=== PATIENT | male | born 1975 | race Native Hawaiian/Other Pacific Islander ===

== ENCOUNTER 2020-10-25 15:35 | Outpatient (CLI) | payer OTHER ==
[2020-10-25 15:53] LABS: PLATELET COUNT 131 K/uL (142-355)
[2020-10-25 15:56] LABS: POTASSIUM 4.1 mmol/L (3.6-5.2)
== END 2020-10-25 21:59 | disposition home or self-care (01) ==
LOC: LAB 15:35
PROVIDERS: ATTEND Nurse Practitioner Family
DX: E78.49 Other hyperlipidemia (principal); I10 Essential (primary) hypertension; R53.83 Other fatigue; R53.81 Other malaise
CPT/HCPCS: 80053; 80061; 82652; 82746; 83036; 84443; 85027